=== PATIENT | female | born 1990 | race Caucasian/White ===

== ENCOUNTER 2016-06-10 14:44 | Emergency (ER) | payer OTHER ==
[~2016-06-10] VITALS: Ht 167.6 cm; Wt 49.9 kg
[~2016-06-10 14:44] MED LIST: BENADRYL25 MG; DARVOCET-N 1001 EACH PO; IBUPROFEN 600600 M1 PO; KEFLEX500 MG PO; NOHOMEMEDICATIONS; OXYCODONE HCL 55 MG PO; PREDNISONE 10 M10 MG PO
[2016-06-10 15:04] LABS: URINE BILIRUBIN NEGATIVE (Negative); URINE BLOOD NEGATIVE (Negative); URINE COLOR YELLOW; URINE GLUCOSE-RANDOM* NEGATIVE (Negative); URINE KETONES 1+ (Negative); URINE NITRITE NEGATIVE (Negative); URINE PROTEIN (DIPSTICK) NEGATIVE (Negative); URINE UROBILINOGEN 0.2 E.U./dl (0.2-1.0)
[2016-06-10 15:25] LABS: ABSOLUTE NEUTROPHILS 5.7 thou/uL (1.4-8.2); BASOPHILS 0.2 % (0.0-2.0); EOSINOPHILS 0.8 % (0.0-3.0); HEMATOCRIT 39.1 % (37.0-47.0); HEMOGLOBIN 13.8 gm/dL (12.0-15.0); LYMPHOCYTES 24.6 % (24.0-44.0); MCH 31.3 pg (26.0-34.0); MCHC 35.4 % (28.0-37.0); MCV 88.4 fL (80.0-100.0); MONOCYTES 6.6 % (1.0-8.0); PLATELET COUNT 260 thou/uL (150-400); POLYS 67.8 % (36.0-66.0); RBC 4.43 mil/uL (4.20-5.00); RDW 12.4 % (10.5-14.5); WBC 8.4 thou/uL (4.0-11.0)
[2016-06-10 15:29] LABS: MANUAL DIFF NO
[2016-06-10 15:34] LABS: CREATININE 1.1 mg/dL (0.6-1.3); POTASSIUM 3.9 mmol/L (3.5-5.1)
[2016-06-10 15:39] LABS: ALBUMIN 3.9 g/dL (3.4-5.0); DIRECT BILIRUBIN 0.2 mg/dL (<0.1-0.3); TOTAL BILIRUBIN 0.7 mg/dL (<0.1-1.0); TOTAL PROTEIN 6.7 g/dL (6.4-8.2)
[2016-06-10] MEDS ORDERED: NAPROSYN500 MG PO (16:46)
[2016-06-10] MEDS ORDERED: HYDROCODONE-AP1 EAC6 PO (16:59)
== END 2016-06-10 17:05 | disposition home or self-care (01) ==
LOC: ER 14:44
PROVIDERS: Nurse Practitioner
DX: N83.292 Other ovarian cyst, left side (principal); Z98.890 Other specified postprocedural states; F12.10 Cannabis abuse, uncomplicated; F17.210 Nicotine dependence, cigarettes, uncomplicated; F10.99 Alcohol use, unspecified with unspecified alcohol-induced disorder